=== PATIENT | female | born 1990 | race African-American/Black ===

== ENCOUNTER 2019-08-05 23:36 | Emergency (ER) | payer MEDICAID ==
[~2019-08-05] VITALS: Ht 160 cm; Wt 508.2 kg
[~2019-08-05 23:36] MED LIST: FLOVENT HFA 11012 GM INH; HYDROCODON-ACE1 EAC7 PO; IBUPROFEN600 MG PO; LISINOPRIL2.5 MG PO; PHENERGAN25 M1 PO; PHENERGAN6.25 MG/5 PO; PRENATAL COMPLE1 TAB PO; PROVENTIL HFA6.7 GM INH
[2019-08-05 23:41] VITALS: Ht 160 cm; Wt 508.2 kg
[2019-08-06 00:17] LABS: BASOPHILS 0.3 % (0-2); EOSINOPHILS 4.9 % (0-7); HEMATOCRIT 35.1 % (36.0-48.0); HEMOGLOBIN 11.8 g/dL (12-16); IMMATURE GRANULOCYTES 0.2 % (0-5); LYMPHOCYTES 39.9 % (15-50); MCH 25.5 pg (26.0-34.0); MCHC 33.6 g/dL (31.0-37.0); MEAN PLATELET VOLUME 10.5 fL (7.4-10.4); MONOCYTES 4.3 % (2-11); NEUTROPHILS 50.4 % (40-80); PLATELET COUNT 197 10x3/uL (130-400); RBC 4.62 10x6/uL (4.00-5.40); RDW 14.8 % (11.5-14.5); WBC 6.5 10x3/uL (4.8-10.8)
[2019-08-06 00:26] LABS: APPEARANCE CLEAR (CLEAR); BILIRUBIN NEGATIVE (NEGATIVE); COLOR YELLOW (YELLOW); GLUCOSE NEGATIVE (NEGATIVE); KETONE NEGATIVE (NEGATIVE); NITRITE NEGATIVE (NEGATIVE); PROTEIN TRACE mg/dL (NEGATIVE); UDS - AMPHET NEGATIVE QUAL (NEGATIVE); UDS - BARB NEGATIVE QUAL (NEGATIVE); UDS - BENZO NEGATIVE QUAL (NEGATIVE); UDS - COCAINE NEGATIVE QUAL (NEGATIVE); UDS - OPIATE NEGATIVE QUAL (NEGATIVE); UDS - PCP NEGATIVE QUAL (NEGATIVE); UDS - THC NEGATIVE QUAL (NEGATIVE); UROBILINOGEN NORMAL (NORMAL)
[2019-08-06 00:27] LABS: BACTERIA FEW /hpf (NEGATIVE); EPITHELIAL CELLS 0-5 /hpf (0-5); MUCUS <1+ /lpf (NONE SEEN); RED CELLS - URINE 0-5 /hpf (0-5)
[2019-08-06 00:32] LABS: ALKALINE PHOSPHATASE 66 U/L (46-116); ALT (SGPT) 28 U/L (10-68); BILIRUBIN - TOTAL 0.29 mg/dL (0.2-1.3); CALC OSMOLALITY 280 mosm/kg (275-300); CALCIUM 8.8 mg/dL (8.5-10.1); CHLORIDE - SERUM 102 mmol/L (98-107); CREATININE - SERUM 0.8 mg/dL (0.6-1.3); GLUCOSE 100 mg/dL (74-106); POTASSIUM - SERUM 3.9 mmol/L (3.5-5.1); PROTEIN - SERUM 7.8 g/dL (6.4-8.2); SODIUM 140 mmol/L (136-145); UREA NITROGEN 18 mg/dL (7-18); eGFR NON AFRICAN AMERICAN 90 mL/min (90-120)
[2019-08-06 00:40] LABS: HCG - QUANTITATIVE (MATERNAL) 686 mIU/mL
[2019-08-06] MEDS ORDERED: VOLTAREN75 MG PO (01:09)
[2019-08-06] MEDS ORDERED: MACROBID100 MG PO (01:09)
[2019-08-06 01:33] VITALS: BP 122/75
== END 2019-08-06 01:33 | disposition home or self-care (01) ==
LOC: D.ER 23:36
PROVIDERS: Family Medicine
DX: O86.20 Urinary tract infection following delivery, unspecified (principal)